=== PATIENT | male | born 1945 | race Caucasian/White ===

== ENCOUNTER 2017-01-06 06:50 | Observation (INO) | payer MEDICARE, OTHER ==
[~2017-01-06] VITALS: Ht 177.8 cm; Wt 76.9 kg
[~2017-01-06 06:50] MED LIST: CALC-255 PO; CALC1TAB87 PO; CHEL50TA PO; D 50CAP2 PO; DOXA1TAB34 PO; E 101000 PO; FINA5TAB2 PO; FLUO1TAB3 PO; MAGN250T11 PO; MELA10CA PO; METO10TA PO; MULT-65 PO; OMEP40CA2 PO; PRAS1CAP PO; SELE200T17 PO; SIMV40TA PO; TAMS0.4C4 PO
[2017-01-06] MEDS ORDERED: SODIUM CHLORID 0.9% 500 ML IV PRN (07:30)
[2017-01-06] MEDS ORDERED: LACTATED RINGER'S 1000 ML IV PRN (07:30)
[2017-01-06] MEDS ORDERED: METOPROLOL TARTRATE 25 MG TAB PO PRN (07:30)
[2017-01-06] MEDS ORDERED: POVIDONE IODINE 5% (ANTISEPSIS KIT) 4 APPLICATIONS EACH NARE PRN (07:30)
[2017-01-06] MEDS ORDERED: CHLORHEXIDINE GLUCONATE 2 % 1 PACK (2 CLOTHS) TOPICAL PRN (07:30)
--- NOTE | 2017-01-06 09:05 | PD.HP.UP ---
H&P Update Note The Pre-Admit History and Physical Examination regarding the above named patient was reviewed (including, but not limited to, vital signs, heart, lungs, co-morbid conditions), and upon re-examination it is noted that: the patient's condition has not significantly changed since the last examination. Peri Son MD Jan 06, 2017 09:05
[2017-01-06] MEDS ORDERED: metroNIDAZOLE 500 MG INJ 100 ML IV ONE (09:19)
[2017-01-06] MEDS ORDERED: ceFAZolin 2 GM PREMIX 50 ML ONE (09:19)
[2017-01-06] MEDS ORDERED: HYDROmorphone HCL PF 2 MG/ML VIAL ONE (10:34)
[2017-01-06] MEDS ORDERED: SUGAMMADEX SODIUM 200 MG/2 ML VIAL IV PUSH ONE ×2 (10:34)
[2017-01-06] MEDS ORDERED: NALOXONE HCL 0.4 MG/ML AMP ONE (10:35)
[2017-01-06] MEDS ORDERED: DO NOT ADM ANY ANTICOAGULANT DRUGS PRN (11:16)
[2017-01-06] MEDS ORDERED: *morphine SULFATE 8 MG/ML PERIprocedure ONLY ONE ×2 (11:29→11:37)
[2017-01-06] MEDS ORDERED: SODIUM CHLORIDE 0.9% FLUSH 5 ML FLUSH IVF PRN (11:30)
[2017-01-06] MEDS ORDERED: NALOXONE HCL 0.4 MG/ML AMP IV PUSH PRN (11:30)
[2017-01-06] MEDS ORDERED: HYDR-3516 PO (11:33)
[2017-01-06] MEDS ORDERED: *HYDROmorphone PF 1 MG VIAL PERIprocedural Use ONLY ONE (11:46)
[2017-01-06] MEDS ORDERED: MIDAZOLAM HCL 2 MG/2 ML VIAL IV ONE (12:00)
[2017-01-06] MEDS ORDERED: LACTATED RINGER'S 1000 ML INJ 2,000 ML IV ONE (12:00)
[2017-01-06] MEDS ORDERED: ROCURONIUM INJ 50 MG/5 ML SYRINGE IV PUSH ONE (12:00)
[2017-01-06] MEDS ORDERED: ENALAPRILAT 1.25 MG/ML VIAL IV PUSH PRN (12:00)
[2017-01-06] MEDS ORDERED: LIDOCAINE HCL 1% PF 5 ML AMPULE OTHER ONE (12:00)
[2017-01-06] MEDS ORDERED: ACETAMINOPHEN 325 MG TAB PO PRN (12:00)
[2017-01-06] MEDS ORDERED: BENZOCAINE 6 MG/MENTHOL 10 MG LOZENGE BUCCAL PRN (12:00)
[2017-01-06] MEDS ORDERED: PHENYLEPH/NS 1000 MCG/10 ML SYR IV ONE (12:00)
[2017-01-06] MEDS ORDERED: ePHEDrine/NS 25 MG/5 ML SYR IV ONE (12:00)
[2017-01-06] MEDS ORDERED: ENALAPRILAT 2.5 MG/2 ML VIAL IV PUSH PRN (12:00)
[2017-01-06] MEDS ORDERED: DEXAMETHASONE SOD PHOS 4 MG/ML VIAL IV ONE (12:00)
[2017-01-06] MEDS ORDERED: ONDANSETRON HCL 4 MG/2 ML VIAL IV PUSH PRN (12:00)
[2017-01-06] MEDS ORDERED: ONDANSETRON HCL 4 MG/2 ML VIAL IV PUSH ONE (12:00)
[2017-01-06] MEDS ORDERED: PROPOFOL 200 MG/20 ML AMP IV ONE (12:00)
[2017-01-06] MEDS ORDERED: Post-op Orders (for Pharmacy) MISC XX ONE (12:00)
[2017-01-06] MEDS: D5-NS + KCL 20 MEQ INJ 1,000 ML IV SCH ×3 (12:14→20:27)
[2017-01-06] MEDS ORDERED: POTASSIUM CHLOR 20 MEQ PREMIX 100 ML IV PRN ×2 (12:15)
[2017-01-06 12:23] LABS: AUTOMATED NEUTROPHIL # 7.9 TH/MM3 (1.8-7.7); BASOPHIL % 0.2 % (0.0-2.0); EOSINOPHIL # 0.2 TH/MM3 (0-0.4); EOSINOPHIL % 2.1 % (0.0-4.0); HEMO FLAGS DIFF FINAL; LYMPH % 15.9 % (9.0-44.0); LYMPHOCYTE # 1.6 TH/MM3 (1.0-4.8); MEAN CELL VOLUME 96.5 FL (80.0-100.0); MEAN CORPUSCULAR HEMOGLOBIN 34.2 PG (27.0-34.0); MEAN CORPUSCULAR HGB CONC 35.4 % (32.0-36.0); MONO % 2.9 % (0.0-8.0); NEUT % 78.9 % (16.0-70.0); PLATELET COUNT 180 TH/MM3 (150-450); RED BLOOD COUNT 4.14 MIL/MM3 (4.50-5.90); RED CELL DISTRIBUTION WIDTH 13.1 % (11.6-17.2)
[2017-01-06] MEDS: KETOROLAC TROMETHAMINE 30 MG/ML (IVP) VIAL IVP SCH ×2 (12:23→20:19)
[2017-01-06 12:42] LABS: BICARBONATE 24.1 MEQ/L (21.0-32.0); POTASSIUM 3.6 MEQ/L (3.5-5.1)
[2017-01-06] MEDS ORDERED: ACETAMINOPHEN/HYDROcodone 325 MG/5 MG TAB PO PRN (13:00)
[2017-01-06] MEDS ORDERED: NICOTINE 21 MG/24 HR PATCH T-DERMAL ONE (13:00)
[2017-01-06] MEDS ORDERED: diphenhydrAMINE HCL 50 MG/ML VIAL IV PUSH PRN (13:00)
[2017-01-06 13:50] VITALS: BP 116/63; PULSE 85; RESP 17; TEMP 97.1; O2SAT 94
[2017-01-06] MEDS ORDERED: MORPHINE SULFATE 2 MG/ML INJ IM PRN (15:00)
[2017-01-06] MEDS: PANTOPRAZOLE SODIUM 40 MG VIAL IVP SCH (15:02)
[2017-01-06 16:00] VITALS: BP 116/66; PULSE 76; RESP 17; TEMP 96.8; O2SAT 98
[2017-01-06] MEDS: metroNIDAZOLE 500 MG INJ 100 ML IV SCH (17:00)
[2017-01-06] MEDS: HEPARIN SODIUM - SQ 10,000 UNITS/ML VIAL SQ SCH (17:44)
--- NOTE | 2017-01-06 19:17 | MP ---
cc: MALLORY SON M.D., ROY H. MD DATE OF SURGERY 01/06/17 PREOPERATIVE DIAGNOSIS Cecal/appendiceal polyp. DIAGNOSIS Cecal/appendiceal polyp. 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 This measured about 1.5 cm in size and appeared to go down into the appendiceal orifice and so it was felt prudent to do an extended appendectomy. OPERATIVE FINDINGS Polyp as described. There were no visible abnormalities within the liver or the remainder of the abdominal cavity. PROCEDURE IN DETAIL The patient was brought to the operating room and placed in supine position. After induction of general anesthesia, the bed was broken slightly. The skin of the anterior abdominal wall as well as the perineal area was prepped and draped in usual sterile fashion. A site was chosen for the camera being located just to the right and below the umbilicus. A 10-12 trocar was placed at this location under direct vision. CO2 insufflation was started and the laparoscope was placed in the peritoneal cavity. There were no abnormalities noted which would preclude the robotic approach. The remainder of the ports were placed as follows: The #3 port was placed just inside the right anterior superior iliac spine. The #2 port was placed in the right side of the suprapubic area. The #1 port was placed just under the left costal margin and the #5 assist port was placed equal distance to the #1 and the camera port. The patient was hydroplaned slightly with his head down and slightly to the right. The small bowel was brought up and out of the pelvis. There were some mild adhesions of the small terminal ileum to the right lower quadrant. The robot was then docked. The cecum and appendix were then carefully pulled away from the posterior peritoneum and dissection was continued in this plane. The appendix was noted to be mildly retrocecal, but was easily dissected free from the posterior peritoneum. The dissection continued until we had full mobility of the cecum and the terminal ileum. The appendiceal mesentery was then gently dissected free using electrocautery and the vessels were clipped using hemolock clamps. Initially we had full mobility of the cecum and the appendix. A site was then chosen for division of the cecum approximately 2 cm proximal to the base of the appendix. The robotic stapler was placed across the cecum at this level. This was closed, held for 30 seconds, fired and removed and the staple line was noted to be complete and the bowel appeared pink, healthy and under no tension. The appendix and portion of the cecum were then placed in the EndoCatch bag and removed through the peritoneal cavity and the specimen was opened and the polyp was confirmed. This was then sent for pathology. All dissection beds were examined with no sign of any significant bleeding noted. The 10-12 trocar sites of the fascia was closed using the crossbow device and 0 Vicryl suture and the skin incisions were closed in an interrupted subcuticular fashion using 3-0 Vicryl. Steri-Strips and sterile dressings were then applied. All sponge, needle, and instrument counts were correct and the patient was returned to the post anesthesia care unit in stable condition. MD EDVIN Chin/ /11:30 AM /7:05 PM
[2017-01-06 20:00] VITALS: BP 123/69; PULSE 71; RESP 18; TEMP 97.5; O2SAT 99
[2017-01-06] MEDS: DOXAZOSIN MESYLATE 4 MG TAB PO SCH (20:19)
[2017-01-06] MEDS: METOCLOPRAMIDE HCL 10 MG TAB PO SCH (20:19)
[2017-01-06] MEDS: REMOVE OLD NICODERM (NICOTINE) PATCH T-DERMAL SCH (20:22)
[2017-01-06] MEDS: SODIUM CHLORIDE 0.9% FLUSH 5 ML FLUSH IVF SCH (20:23)
[2017-01-07] VITALS (7 sets, daily range): BP systolic 108–137; BP diastolic 60–77; PULSE 61–66; RESP 18–20; TEMP 96.9–97.7; O2SAT 96–99
[2017-01-07] MEDS: metroNIDAZOLE 500 MG INJ 100 ML IV SCH ×2 (01:00→08:03)
[2017-01-07] MEDS: KETOROLAC TROMETHAMINE 30 MG/ML (IVP) VIAL IVP SCH ×4 (01:05→18:23)
[2017-01-07] MEDS: ACETAMINOPHEN/HYDROcodone 325 MG/5 MG TAB PO PRN ×3 (04:58→18:23)
[2017-01-07] MEDS: D5-NS + KCL 20 MEQ INJ 1,000 ML IV SCH ×2 (04:59→16:23)
[2017-01-07] MEDS: HEPARIN SODIUM - SQ 10,000 UNITS/ML VIAL SQ SCH ×2 (06:29→18:24)
[2017-01-07 07:29] LABS: AUTOMATED NEUTROPHIL # 8.2 TH/MM3 (1.8-7.7); BASOPHIL % 0.2 % (0.0-2.0); EOSINOPHIL % 0.4 % (0.0-4.0); HEMATOCRIT 36.9 % (39.0-51.0); HEMO FLAGS DIFF FINAL; LYMPH % 14.9 % (9.0-44.0); LYMPHOCYTE # 1.6 TH/MM3 (1.0-4.8); MEAN CELL VOLUME 96.4 FL (80.0-100.0); MEAN CORPUSCULAR HEMOGLOBIN 33.4 PG (27.0-34.0); MEAN CORPUSCULAR HGB CONC 34.7 % (32.0-36.0); MONO % 10.2 % (0.0-8.0); NEUT % 74.3 % (16.0-70.0); PLATELET COUNT 173 TH/MM3 (150-450); RED BLOOD COUNT 3.83 MIL/MM3 (4.50-5.90); RED CELL DISTRIBUTION WIDTH 13.1 % (11.6-17.2)
[2017-01-07 07:56] LABS: BICARBONATE 24.8 MEQ/L (21.0-32.0); POTASSIUM 4.2 MEQ/L (3.5-5.1)
[2017-01-07] MEDS: PANTOPRAZOLE SODIUM 40 MG VIAL IVP SCH (08:03)
[2017-01-07] MEDS: SODIUM CHLORIDE 0.9% FLUSH 5 ML FLUSH IVF SCH ×2 (08:05→21:26)
[2017-01-07] MEDS: REMOVE OLD NICODERM (NICOTINE) PATCH T-DERMAL SCH (21:00)
[2017-01-07] MEDS: METOCLOPRAMIDE HCL 10 MG TAB PO SCH (21:25)
[2017-01-07] MEDS: DOXAZOSIN MESYLATE 4 MG TAB PO SCH (21:25)
[2017-01-08 00:10] VITALS: BP 134/79; PULSE 66; RESP 18; TEMP 98.8; O2SAT 94
[2017-01-08] MEDS: KETOROLAC TROMETHAMINE 30 MG/ML (IVP) VIAL IVP SCH ×2 (00:44→06:23)
[2017-01-08] MEDS: ACETAMINOPHEN/HYDROcodone 325 MG/5 MG TAB PO PRN ×2 (00:45→06:23)
[2017-01-08] MEDS: D5-NS + KCL 20 MEQ INJ 1,000 ML IV SCH (03:00)
[2017-01-08 04:45] LABS: AUTOMATED NEUTROPHIL # 4.5 TH/MM3 (1.8-7.7); BASOPHIL % 0.5 % (0.0-2.0); EOSINOPHIL # 0.6 TH/MM3 (0-0.4); EOSINOPHIL % 7.5 % (0.0-4.0); HEMATOCRIT 37.1 % (39.0-51.0); HEMO FLAGS DIFF FINAL; LYMPH % 26.1 % (9.0-44.0); MEAN CELL VOLUME 95.8 FL (80.0-100.0); MEAN CORPUSCULAR HEMOGLOBIN 32.6 PG (27.0-34.0); MEAN CORPUSCULAR HGB CONC 34.1 % (32.0-36.0); MONO % 8.6 % (0.0-8.0); NEUT % 57.3 % (16.0-70.0); PLATELET COUNT 169 TH/MM3 (150-450); RED BLOOD COUNT 3.87 MIL/MM3 (4.50-5.90); RED CELL DISTRIBUTION WIDTH 13.2 % (11.6-17.2); WHITE BLOOD COUNT 7.8 TH/MM3 (4.0-11.0)
[2017-01-08 05:01] LABS: BICARBONATE 23.6 MEQ/L (21.0-32.0); POTASSIUM 4.5 MEQ/L (3.5-5.1)
[2017-01-08] MEDS: HEPARIN SODIUM - SQ 10,000 UNITS/ML VIAL SQ SCH (06:22)
[2017-01-08] MEDS: PANTOPRAZOLE SODIUM 40 MG VIAL IVP SCH (07:40)
[2017-01-08] MEDS: SODIUM CHLORIDE 0.9% FLUSH 5 ML FLUSH IVF SCH (07:40)
[2017-01-08 08:00] VITALS: BP 138/85; PULSE 61; RESP 18; TEMP 97.3; O2SAT 95
[2017-01-08 10:18] VITALS: O2SAT 95
== END 2017-01-08 11:07 | disposition home or self-care (01) ==
LOC: HSDC 06:50 → EDSTATUS 08:30 → INTOOBSV 14:39 → N07A 14:39
PROVIDERS: ADMIT Colon & Rectal Surgery; ATTEND Colon & Rectal Surgery
DX: D12.1 Benign neoplasm of appendix (principal)
CPT/HCPCS: 00840; 44970; 80048; 85025; 88304; 94150; 96361; 96365; 96366; 96367; 96372; 96375; 96376; C9113; G0378; J0690; J1100; J1170; J1644; J1885; J2250; J2270; J2370; J2405; J3010; J3480; J7120; J2310